=== PATIENT | female | born 1945 ===

== ENCOUNTER 2021-02-09 08:28 | Emergency (ER) | payer OTHER ==
[~2021-02-09] VITALS: Ht 147.3 cm; Wt 68.0 kg
[2021-02-09] MEDS ORDERED: NORVASC5 MG PO (08:47)
[2021-02-09] MEDS ORDERED: LEVOTHYROXINE25 MCG PO (08:48)
[2021-04-10] MEDS ORDERED: ZESTRIL5 MG (20:38)
== END 2021-02-09 18:44 | disposition home or self-care (01) ==
LOC: ER 08:28
DX: N17.9 Acute kidney failure, unspecified (principal); E87.5 Hyperkalemia; E86.0 Dehydration; R10.2 Pelvic and perineal pain; R63.0 Anorexia; M25.551 Pain in right hip

== ENCOUNTER → 2021-04-10 | Emergency (ER) | payer OTHER ==
[~2021-04-10] VITALS: Ht 147.3 cm; Wt 67.6 kg
[~2021-04-10] MED LIST: LEVOTHYROXINE25 MCG PO; NORVASC5 MG PO; ZESTRIL5 MG
== END | disposition home or self-care (01) ==
LOC: ER 20:29
DX: M25.551 Pain in right hip (principal)